=== PATIENT | female | born 1965 | race Caucasian/White ===

== ENCOUNTER 2022-01-28 08:52 | Emergency (ER) | payer BC, SELFPAY ==
--- NOTE | ~2022-01-28 | XR_ITS ---
EXAMINATION: XR ANKLE, LEFT CLINICAL INFORMATION: Left ankle injury. Pain COMPARISON: None TECHNIQUE: AP, lateral, and mortise views of the left ankle. FINDINGS: There is an oblique distal fibular fracture with minimal displacement. There is moderate lateral malleolar soft tissue swelling. No additional fracture seen. The ankle mortise and subtalar joints are normal. Tiny calcaneal heel enthesophyte is seen. XR/XR ankle LT 2V IMPRESSION: 1. Oblique minimally displaced distal fibular fracture with moderate lateral malleolar soft tissue swelling. 2 . Tiny calcaneal heel enthesophyte.
[2022-01-28 08:53] VITALS: BP 126/71; PULSE 77; RESP 17; TEMP 35.6; O2SAT 97; BMI 33.5
--- NOTE | 2022-01-28 10:25 | ED_ITS ---
HPI - Extremity Injury (Lower) General Chief Complaint: Extremity Injury, Lower Stated Complaint: L ankle inj 01/28/22 Time Seen by Provider: 01/28/22 10:24 Source: patient Mode of arrival: wheelchair History of Present Illness HPI Narrative: 56-year-old female with no significant past medical history presenting to the ED complaining of left ankle pain and swelling s/p tripping down 3-4 stairs this morning. Patient was minimally ambulatory after incident. Reports mild associated paresthesias to lateral ankle. Denies head trauma or LOC. Denies symptoms prior to fall. Denies headache, neck/back pain MD complaint: ankle injury Onset (ago): hour(s) Related Data Allergies Allergy/AdvReac Type Severity Reaction Status Date / Time eszopiclone [Lunesta] Allergy Unknown Verified 12/19/16 00:00 zolpidem [Ambien] Allergy Unknown Verified 12/19/16 00:00 Review of Systems Review of Systems: Constitutional: No Fever, No Chills ENT/Mouth: No Ear Pain, No Nasal Congestion, No Sinus Pain, No Hoarseness, No sore throat Cardiovascular: No Chest Pain, No SOB Respiratory: No Cough, No Sputum Gastrointestinal: No Nausea, No Vomiting, No Diarrhea, No Constipation, No Abdominal pain Genitourinary: No Dysuria, No Urinary Frequency, No Hematuria, No Urgency, No Flank Pain Musculoskeletal: + joint pain, No Myalgias, + Joint Swelling Skin: No Skin Lesions, No rash Neuro: No Weakness, No Numbness, + Paresthesias, No head trauma, No LOC Yes all other systems are reviewed and are negative Constitutional: Constitutional: Reports as per [facility] Past Medical History Attestation statement: The following information was validated with the patient. Social History Social History Advance Directives: Yes Advance Directives Information Provided: Yes Advance Directives on File: No Physical Exam Vital Signs: Vital Signs: Last Vital Signs Temp 96.1 F L 01/28/22 08:53 Pulse 77 01/28/22 08:53 Resp 17 01/28/22 08:53 BP 126/71 01/28/22 08:53 Pulse Ox 97 01/28/22 08:53 O2 Del Method 01/28/22 08:53 BMI result Body Mass Index 33.5 Const: General: cooperative, healthy appearing, comfortable and no acute distress Orientation/consciousness: patient oriented x3 Limitations: no limitations HEENT: Head: Yes normal to inspection and Yes atraumatic Ears: hearing grossly normal bilaterally General nose exam: Normal external nose present Face and sinus: Yes normal facial exam Eyes: General: appearance normal, both eyes and all related structures EOM: EOMs intact bilaterally Neck: Neck: Yes normal visual inspection and Yes no meningeal signs Resp: Effort & Inspection: normal respiratory effort and no respiratory distress Cardio: Rate: regular rate Heart sounds: S1 normal heart sound present and S2 normal heart sound present Peripheral pulses: Peripheral pulses 2+ throughout Skin: Rashes: no rashes Wounds: no wounds Neuro: General: patient oriented x3, tone normal and no meningeal signs Extrem: Other: + lab ankle with noted swelling greatest to lateral aspect. Tender to palpation. Decreased are was secondary to pain. Neurovascularly intact, sensation intact to light touch. Left hip/knee/foot nontender Course Course Course Narrative: XR ankle LT 2V IMPRESSION: 1.? Oblique minimally displaced distal fibular fracture with moderate lateral malleolar soft tissue swelling. 2 . Tiny calcaneal heel enthesophyte. > results discussed with patient. Will place in posterior short-leg with stirrups and crutches to follow-up with orthopedics in 1 week MDM - Extremity Injury (Lower) MDM Narrative Medical decision making narrative: 56-year-old female with no significant past medical history presenting to the ED complaining of left ankle pain and swelling s/p tripping down 3-4 stairs this morning. On exam VSS, NAD, physical exam as above. Concern for fracture versus sprain Plan: X-rays Differential Diagnosis Differential diagnosis: Likely ankle sprain and strain Medical Records Attestation: I reviewed the patient's medical records. Lab Data Attestation: I reviewed the patient's lab results. Procedures Orthopedic Splinting/Casting Injury #1: Side: left Lower Extremity Injury Location: ankle Lower Extremity Immobilizer: posterior splint and stirrup splint Other Orthopedic Equipment: crutches Discharge Plan Discharge Clinical Impression: Fracture of distal end of fibula Patient Disposition: Home, Self-Care Referrals: [facility] [place] Orthopedic Surgeons [Provider Group] - 1 week
== END 2022-01-28 12:54 | disposition home or self-care (01) ==
PROVIDERS: Emergency Provider Emergency Medicine; PCP Nurse Practitioner
DX: S82.832A Other fracture of upper and lower end of left fibula, initial encounter for closed fracture (principal); M25.572 Pain in left ankle and joints of left foot; W10.9XXA Fall (on) (from) unspecified stairs and steps, initial encounter; Y93.9 Activity, unspecified; Y92.9 Unspecified place or not applicable; Y99.9 Unspecified external cause status
CPT/HCPCS: 29515; 73600; 99284